=== PATIENT | female | born 1975 | race African-American/Black ===

== ENCOUNTER → 2020-12-11 | Emergency (ER) | payer MEDICAID, OTHER ==
[~2020-12-11] VITALS: Ht 172.7 cm; Wt 77.1 kg
[2020-12-11 09:50] VITALS: BP 138/86
== END | disposition left against medical advice (07) ==
LOC: ER 09:49
DX: F41.9 Anxiety disorder, unspecified (principal); Z53.21 Procedure and treatment not carried out due to patient leaving prior to being seen by health care provider

== ENCOUNTER 2021-02-01 20:33 | Emergency (ER) | payer MEDICAID, OTHER ==
[~2021-02-01] VITALS: Ht 162.6 cm; Wt 86.2 kg
[2021-02-01 21:03] VITALS: BP 93/61
== END 2021-02-01 21:09 | disposition left against medical advice (07) ==
LOC: ER 20:35
DX: R06.02 Shortness of breath (principal); R05 Cough; Z53.21 Procedure and treatment not carried out due to patient leaving prior to being seen by health care provider
CPT/HCPCS: 93005